=== PATIENT | male | born 1990 | race Caucasian/White ===

== ENCOUNTER → 2019-03-23 15:14 | Outpatient (CLI) | payer OTHER, SELFPAY | PROVIDERS: PCP Family Medicine; Visit Provider Nurse Practitioner Family | DX: Z02.4 Encounter for examination for driving license (principal) ==

== ENCOUNTER 2019-07-12 06:52 | Observation (INO) ==
[2019-07-12 07:12] LABS: Basophils % 0.6 % (0.1-2.0); Eosinophils # 0.1 K/mm3 (0.0-0.4); Eosinophils % 1.3 % (0.1-12.0); Hematocrit 46.4 % (42.0-52.0); Hemoglobin 16.3 g/dL (14.1-18.0); Lymphocytes # 1.9 K/mm3 (0.7-4.5); Lymphocytes % 39.1 % (10-50); Mean Corpuscular HGB Conc 35.1 g/dL (31.8-35.4); Mean Platelet Volume 7.1 fl (7.4-10.4); Monocytes # 0.2 K/mm3 (0.1-1.0); Monocytes % 3.8 % (1.7-9.3); Neutrophils # 2.7 K/mm3 (1.8-7.8); Neutrophils % 55.3 % (37.0-80.0); Platelet Count 250 K/mm3 (142-424); Red Blood Count 5.21 M/mm3 (4.60-6.20); Red Cell Distribution Width 12.4 % (11.5-17.5); White Blood Count 4.8 K/mm3 (4.8-10.8)
--- NOTE | 2019-07-12 07:35 | Emergency Department Note ---
ED Disposition Clinical Impression: Atrial fibrillation Qualifiers: Atrial fibrillation type: unspecified Qualified Code(s): I48.91 - Unspecified atrial fibrillation Disposition: Admitted as Observation Condition on Discharge: Good Referrals: Bal Cody MD [Primary Care Provider] - - Critical Care Critical Care Time: No Attestation: On 07/12/19, the high probability of a clinically significant, sudden or life threatening deterioration of the following system(s) required my full and direct attention, intervention and personal management. The time I documented below is in addition to time spent performing reported procedures but includes the following listed in this critical care notation. Medical Decision Making - Medical Records Medical records reviewed: Yes: I reviewed the patient's medical records. - Phil Inquiry Pt receiving controlled substance: No Vital Signs: 07/12/19 06:53 07/12/19 07:51 Temperature 98.2 F Temperature Source Oral Pulse Rate [Left Radial] 114 H Respiratory Rate 16 16 Blood Pressure [Right Arm] 161/92 H 100/58 L Blood Pressure Mean [Right Arm] 115 72 Blood Pressure Source [Right Arm] Automatic Cuff Automatic Cuff Blood Pressure Position [Right Arm] Sitting Sitting 02 Sat by Pulse Oximetry 97 95 Oxygen Delivery Method Room Air Room Air - Lab Data Lab results reviewed: Yes: I reviewed the patient's lab results. Lab Results 07/12/19 06:58: WBC 4.8, RBC 5.21, Hgb 16.3, Hct 46.4, MCV 89.0, MCH 31.3 H, MCHC 35.1, RDW 12.4, Plt Count 250, MPV 7.1 L, Neut % (Auto) 55.3, Lymph % (Auto) 39.1, [place] % (Auto) 3.8, Eos % (Auto) 1.3, Baso % (Auto) 0.6, Neut # (Auto) 2.7, Lymph # (Auto) 1.9, [place] # (Auto) 0.2, Eos # (Auto) 0.1, Baso # (Auto) 0.0, ESR 5 07/12/19 06:58: Sodium 139, Potassium 3.9, Chloride 101, Carbon Dioxide 28, Anion Gap 13.9, BUN 12, Creatinine 1.22, Estimated Creat Clear 115, Estimated GFR 70, Est GFR ( Amer) 85, Glucose 141 H, Calcium 9.1, Troponin I < 0.02, C-Reactive Protein < 0.2 07/12/19 06:58: TSH 1.51, Thyroxine (T4) 8.6 07/12/19 07:16: Urine Opiates Screen Negative, Urine Methadone Screen Negative, Ur Barbituates Screen Negative, Ur Phencyclidine Scrn Negative, Ur Amphetamines Screen Negative, U Benzodiazepines Scrn Negative, Urine Cocaine Screen Negative, U Marijuana (THC) Screen Negative 07/12/19 07:16: Urine Color Yellow, Urine Appearance Clear, Urine pH 6.0, Ur Specific [place] >= 1.030, Urine Protein Negative, Urine Glucose (UA) Negative, Urine Ketones Negative, Urine Blood Negative, Urine Nitrate Negative, Urine Bilirubin Negative, Urine Urobilinogen 0.2, Ur Leukocyte Esterase Negative Result diagrams: 07/12/19 06:58 07/12/19 06:58 Orders (Tests/Meds): ED MEDICATIONS Generic Name Dose Route Start Last Admin Trade Name Freq PRN Reason Stop Dose Admin Sodium Chloride 1,000 mls @ 999 mls/hr 07/12/19 07:15 07/12/19 07:24 Sod Chlor 0.9% 1000ml Bag IV 07/12/19 08:15 999 mls/hr .Q1H1M FELIPE Administration Diltiazem HCl 100 mg/ Sodium 100 mls @ 5 mls/hr 07/12/19 07:41 07/12/19 07:43 Chloride IV 08/11/19 07:40 5 mls/hr .Q20H FELIPE Administration Discontinued Medications Generic Name Dose Route Start Last Admin Trade Name Freq PRN Reason Stop Dose Admin Aspirin 324 mg 07/12/19 07:11 07/12/19 07:24 Aspirin 81mg Chewable Tablet PO 07/12/19 07:12 324 mg ONCE ONE Administration Diltiazem HCl 10 mg 07/12/19 07:25 07/12/19 07:43 Cardizem 25mg/5ml Vial IV 07/12/19 07:26 10 mg ONCE ONE Administration ORDERS Category Date Time Status D-Dimer Stat Lab 07/12/19 07:16 Received Troponin I Q3H Lab 07/12/19 10:15 Ordered Troponin I Q3H Lab 07/12/19 13:15 Ordered UA [Urinalysis and Microscopic] Stat Lab 07/12/19 07:16 Results - ECG Data Tracing #1 Arrhythmias present: afib Ischemic changes: non-specific ST-T wave changes - Physician Consults Physician Consulted: kathie Reason -: Admission Additional Consult: vidal Reason -: Pt condition Arrhythmia/Palpitations HPI - General Chief Complaint: Arrhythmia/Palpitations Stated Complaint: palpitation Time Seen by Provider: 07/12/19 07:34 Mode of Arrival: Ambulatory Source of Information: Patient, Medical Record Limitations: No Limitations - History of Present Illness HPI narrative: pt with acute onset of palpitaions complaint: palpitations Onset (ago): hour(s) Duration: constant Severity: moderate Context: occurred during rest Associated symptoms: chest pain - Related Data Home Medications Medication Instructions Recorded Confirmed atorvastatin 20 mg tablet 20 mg PO ONCE 90 Days #90 tab 01/27/18 06/01/19 pantoprazole 40 mg tablet,delayed 40 mg PO DAILY 90 Days #90 01/27/18 06/01/19 release Duloxetine HCl 60 mg PO DAILY 07/12/19 07/12/19 Allergies Allergy/AdvReac Type Severity Reaction Status Date / Time Penicillins [PENICILLINS] Allergy Unknown Verified 07/12/19 07:02 [facility] History - Hepatitis A Screen Drug use history?: No High risk sexual behaviors?: No History of sexually transmitted infection?: No Currently employed?: No Childcare worker?: No Do you have indoor plumbing?: Yes Do you have electricity?: Yes Attestation statement:: This patient has been screened for Hepatitis A risk factors. I have reviewed the patient's past medical history: Yes Medical History: Reports:: Gastroesophageal Reflux Disease(GERD), Hyperlipidemia Other Medical History: Reports: Other Other Surgeries: Yes: No Previous Surgery, Other (loop recorder) - Social History Smoking Status: Never smoker Tobacco Type: smokeless tobacco Alcohol Intake: never Alcohol Intake Frequency:: holidays/special occasions only Substance Use Type: denies use Occupational Status: employed Household Members: spouse Family Hx:: Coronary Artery Disease, Heart Attack, Stroke Comment: paternal grandfather at 51 from [place]. maternal grandfather at 59 from stroke. uncle at 37 from pulmonary fibrosis ROS Obtained: Yes All systems reviewed & no additional complaints - Constitutional Constitutional: Denies fever(s) - Eyes Eyes: Denies change in vision - ENT Ears, Nose, Mouth, and Throat: Denies sore throat - Cardiovascular Cardiovascular: Reports chest pain, Denies dyspnea, Reports irregular heart rhythm, Reports rapid heart rate - Respiratory Respiratory: No cough - Gastrointestinal Gastrointestingal: Denies: vomiting - Genitourinary Male Genitourinary: Denies hematuria - Musculoskeletal Musculoskeletal: Denies joint pain, Denies joint swelling - Integumentary/Breasts Skin/Breast: Denies rash - Neurologic Neurologic: Denies focal weakness, Denies seizure-like activity Physical Exam - General General appearance: alert - Head Head exam: normocephalic - Eye Eye exam: Present: PERRL, EOMI. Absent: scleral icterus - ENT ENT exam: Present: mucous membranes moist - Neck Neck exam: Present: trachea midline - Respiratory Respiratory exam: Present: normal lung sounds bilaterally. Absent: respiratory distress - Cardiovascular Cardiovascular exam: Present: irregular rhythm - Abdominal Exam Abdominal exam: Present: soft - Extremities Exam Extremities exam: Present: full ROM - Neurological Exam Neurological exam: Present: alert, oriented X3, CN II-XII intact - Psychiatric Psychiatric exam: Present: normal affect - Skin Skin exam: Absent: rash
[2019-07-12 07:39] LABS: Calcium 9.1 mg/dL (8.5-10.1)
[2019-07-12 07:44] LABS: Anion Gap 13.9 mEq/L (5-15); Blood Urea Nitrogen 12 mg/dL (7-18); Carbon Dioxide 28 mmol/L (21.0-32.0); Chloride 101 mmol/L (98-107); Sodium 139 mmol/L (136-145)
[2019-07-12 07:45] LABS: C-Reactive Protein < 0.2 mg/dL (0.0-0.9); Glucose 141 mg/dL (74-106)
[2019-07-12 07:45] LABS: Microscopic, Urine URINE MICROSCOPIC (MICROSCOPIC)
[2019-07-12 07:50] LABS: Appearance,Urine CLEAR (Clear); Bilirubin,Urine Negative (Negative); Blood, Urine Negative (Negative); Color,Urine YELLOW (Yellow); Glucose,Urine (UA) Negative (Negative); Ketones,Urine Negative (Negative); Leukocyte Esterase,Urine Negative (Negative); Protein,Urine Negative (Negative); Specific Gravity, Urine >= 1.030 (1.005-1.030); Urobilinogen,Urine 0.2 EU/dl (0.2)
[2019-07-12 07:54] LABS: Thyroid Stimulating Hormone 1.51 uIU/ml (0.358-3.740)
[2019-07-12 07:59] LABS: Amphetamine/Metha Screen,Urine Negative ng/mL (<1000); Barbiturates Screen,Urine Negative ng/mL (<200); Benzodiazepines Screen,Urine Negative ng/mL (<200); Cannabinoid Screen,Urine Negative ng/mL (<50); Cocaine Screen,Urine Negative ng/mL (<300); Methadone Screen,Urine Negative ng/mL (<300); Opiate Screen,Urine Negative ng/mL (<300); Phencyclidine Screen,Urine Negative ng/mL (<25)
[2019-07-12 08:05] LABS: Erythrocyte Sedimentation Rate 5 mm/hr (0-15)
[2019-07-12 08:14] LABS: WBC,Urine Occasional #/hpf (0-3)
--- NOTE | 2019-07-12 08:45 | Pharmacy Consult Notes ---
[facility] Pharmacy VTE Monitoring - Patient Demographics Admission date: 07/12/19 Report Date: 07/12/19 Time: 08:45 Allergies/Adverse Reactions: Patient Allergies Penicillins [PENICILLINS] Allergy (Unknown, Verified 07/12/19 07:02) Height: 1.73 m Weight: 90.718 kg Patient Problems: Current Active Problems Atrial fibrillation (Acute) - VTE Risk Labs: VTE Related Lab Results Hgb 16.3 g/dL (14.1-18.0) 07/12/19 06:58 Hct 46.4 % (42.0-52.0) 07/12/19 06:58 Plt Count 250 K/mm3 (142-424) 07/12/19 06:58 BUN 12 mg/dL (7-18) 07/12/19 06:58 Creatinine 1.22 mg/dL (0.70-1.30) 07/12/19 06:58 Estimated Creat Clear 115 mL/min (50-200) 07/12/19 06:58 Clinical Trial Participant: No - Prophylaxis VTE Prophylaxis Ordered?: Yes Types of VTE Prophylaxis: TEDS Knee High
--- NOTE | 2019-07-12 09:10 | History & Physical Report ---
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 A fellow veterinary medicine teacher measured his pulse rate around 200 beats per minute and measured his blood pressure at around 90 systolic. Patient was brought to the ER for further evaluation. Patient has had a bout a two year history of similar episodes. He describes times when his heart beats fast and he has fatigue and chest pain. He had a cardiac loop recorder implanted about 18 months ago for evaluation of this problem. [facility] History Medical History: Reports:: Gastroesophageal Reflux Disease(GERD), Hyperlipidemia *Have you ever received a pneumonia vaccine?: Yes *Have you received a flu vaccine this season?: Yes Other Medical History: Reports: Other Other Surgeries: Yes: No Previous Surgery, Other (loop recorder) - *Social History Smoking Status: Never smoker Tobacco Type: smokeless tobacco Alcohol Intake: never Alcohol Intake Frequency:: holidays/special occasions only Substance Use Type: denies use *Occupational Status:: employed Household Members: spouse *Travel in the last 8 weeks: None Family Hx:: Coronary Artery Disease, Heart Attack, Stroke Review of Systems - Constitutional Denies fever(s) - Eyes Denies change in vision - ENT Denies bleeding gums - *Cardiovascular Denies generalized swelling - *Respiratory Denies cough - *Gastrointestinal Denies abdominal pain - *Genitourinary Denies difficulty urinating - *Musculoskeletal Denies joint pain - Integumentary/Breasts Denies hair loss - *Neurologic Denies localized weakness, Denies seizure-like activity - Psychiatric Denies memory loss Meds Home Medications Medication Instructions Recorded Confirmed Type atorvastatin 20 mg tablet 20 mg PO HS 90 Days #90 tab 01/27/18 07/12/19 History pantoprazole 40 mg tablet,delayed 40 mg PO DAILY 90 Days #90 01/27/18 07/12/19 History release Duloxetine HCl 60 mg PO DAILY 07/12/19 07/12/19 History Allergies Allergy/AdvReac Type Severity Reaction Status Date / Time Penicillins [PENICILLINS] Allergy Unknown Verified 07/12/19 07:02 Exam Vital signs and Labs for Last 24 Hours: Temp Pulse Resp BP Pulse Ox 98.2 F 114 H 16 100/58 L 95 07/12/19 06:53 07/12/19 07:51 07/12/19 07:51 07/12/19 07:51 07/12/19 07:51 Laboratory Results - last 24 hr 07/12/19 06:58: WBC 4.8, RBC 5.21, Hgb 16.3, Hct 46.4, MCV 89.0, MCH 31.3 H, MCHC 35.1, RDW 12.4, Plt Count 250, MPV 7.1 L, Neut % (Auto) 55.3, Lymph % (Auto) 39.1, [place] % (Auto) 3.8, Eos % (Auto) 1.3, Baso % (Auto) 0.6, Neut # (Auto) 2.7, Lymph # (Auto) 1.9, [place] # (Auto) 0.2, Eos # (Auto) 0.1, Baso # (Auto) 0.0, ESR 5 07/12/19 06:58: Sodium 139, Potassium 3.9, Chloride 101, Carbon Dioxide 28, Anion Gap 13.9, BUN 12, Creatinine 1.22, Estimated Creat Clear 115, Estimated GFR 70, Est GFR ( Amer) 85, Glucose 141 H, Calcium 9.1, Troponin I < 0.02, C-Reactive Protein < 0.2 07/12/19 06:58: TSH 1.51, Thyroxine (T4) 8.6 07/12/19 07:16: D-Dimer < 100 07/12/19 07:16: Urine Opiates Screen Negative, Urine Methadone Screen Negative, Ur Barbituates Screen Negative, Ur Phencyclidine Scrn Negative, Ur Amphetamines Screen Negative, U Benzodiazepines Scrn Negative, Urine Cocaine Screen Negative, U Marijuana (THC) Screen Negative 07/12/19 07:16: Urine Color Yellow, Urine Appearance Clear, Urine pH 6.0, Ur Specific [place] >= 1.030, Urine Protein Negative, Urine Glucose (UA) Negative, Urine Ketones Negative, Urine Blood Negative, Urine Nitrate Negative, Urine Bilirubin Negative, Urine Urobilinogen 0.2, Ur Leukocyte Esterase Negative, Urine RBC None, Urine WBC Occasional, Ur Squamous Epith Cells None, Urine Bacteria None Vital Signs - 24 hr 07/12/19 06:53 07/12/19 07:51 Temperature 98.2 F Pulse Rate [Left Radial] 114 H Respiratory Rate 16 16 Blood Pressure [Right Arm] 161/92 H 100/58 L 02 Sat by Pulse Oximetry 97 95 I & O for Last 24 hours: Intake & Output 07/09/19 07/10/19 07/11/19 07/12/19 23:59 23:59 23:59 23:59 Weight 200 lb - Constitutional no acute distress - *Routine HEENT Exam Head: Present: normocephalic Eye: Present: EOMI, PERRL ENT: Present: mucous membranes moist - *Routine Neck Exam Present: supple. Absent: lymphadenopathy - *Routine Respiratory Exam Present: CTA bilaterally - *Routine Cardiovascular Exam Present: irregularly irregular - *Routine Abdominal Exam Present: soft, normoactive bowel sounds. Absent: tenderness - *Routine Extremities Exam Absent: cyanosis, clubbing, edema - *Routine Skin Exam Present: warm. Absent: rash - *Routine Neurological Exam Present: alert, oriented X3 H&P: Result - Imaging and Cardiology EKG Status: Preliminary report (A fib with RVR) Additional comments: Spoke to Dr. Ennis this morning. He states the loop recorder showed that patient initially went into SVT and then converted to A. fib. Assessment and Plan (1) Atrial fibrillation Current visit: Yes Status: Acute Qualifiers: Atrial fibrillation type: unspecified Qualified Code(s): I48.91 - Unspecified atrial fibrillation Category: Medical Code(s): I48.91 - Unspecified atrial fibrillation (2) SVT (supraventricular tachycardia) Current visit: Yes Status: Acute Category: Medical Code(s): I47.1 - Supraventricular tachycardia (3) GERD (gastroesophageal reflux disease) Current visit: Yes Status: Acute Category: Medical Code(s): K21.9 - Gastro-esophageal reflux disease without esophagitis - Assessment and plan all Dx Assessment and Plan for all problems:: Patient started on a cardizem drip in the ER, plan admission for further evaluation and treatment. At some point patient will likely need an EP study and may need anticoagulation depending on the length of time he is in A. fib.
[2019-07-13 05:28] LABS: Basophils # 0.1 K/mm3 (0-0.2); Basophils % 0.8 % (0.1-2.0); Eosinophils # 0.1 K/mm3 (0.0-0.4); Eosinophils % 1.8 % (0.1-12.0); Hematocrit 42.6 % (42.0-52.0); Hemoglobin 14.7 g/dL (14.1-18.0); Lymphocytes % 34.8 % (10-50); Mean Corpuscular HGB Conc 34.5 g/dL (31.8-35.4); Mean Corpuscular Volume 90.9 fl (80-94); Mean Platelet Volume 7.4 fl (7.4-10.4); Monocytes # 0.3 K/mm3 (0.1-1.0); Monocytes % 5.1 % (1.7-9.3); Neutrophils # 3.3 K/mm3 (1.8-7.8); Neutrophils % 57.5 % (37.0-80.0); Platelet Count 264 K/mm3 (142-424); Red Blood Count 4.68 M/mm3 (4.60-6.20); Red Cell Distribution Width 12.6 % (11.5-17.5); White Blood Count 5.8 K/mm3 (4.8-10.8)
[2019-07-13 05:35] LABS: Anion Gap 15.1 mEq/L (5-15)
[2019-07-13 05:36] LABS: Calcium 8.5 mg/dL (8.5-10.1)
--- NOTE | 2019-07-13 09:05 | Progress Note ---
Internal Medicine - PN: Subj *Date: 07/13/19 *Time: 09:03 Interval history: Patient did well overnight. He converted to NSR around 3 pm yesterday and was changed over to oral Cardizem. He is anxious to go home today. Exam Vital signs and Labs for Last 24 Hours: Temp Pulse Resp BP Pulse Ox 98.2 F 74 19 121/73 97 07/13/19 08:41 07/13/19 08:00 07/13/19 08:00 07/13/19 08:00 07/13/19 08:00 Laboratory Results - last 24 hr 07/12/19 10:45: Troponin I 0.02 07/12/19 13:25: Troponin I 0.04 07/13/19 05:18: WBC 5.8, RBC 4.68, Hgb 14.7, Hct 42.6, MCV 90.9, MCH 31.4 H, MCHC 34.5, RDW 12.6, Plt Count 264, MPV 7.4, Neut % (Auto) 57.5, Lymph % (Auto) 34.8, [place] % (Auto) 5.1, Eos % (Auto) 1.8, Baso % (Auto) 0.8, Neut # (Auto) 3.3, Lymph # (Auto) 2.0, [place] # (Auto) 0.3, Eos # (Auto) 0.1, Baso # (Auto) 0.1 07/13/19 05:18: Sodium 141, Potassium 4.1, Chloride 105, Carbon Dioxide 25, Anion Gap 15.1 H, BUN 12, Creatinine 1.00, Estimated Creat Clear 149, Estimated GFR 88, Est GFR ( Amer) 107 D, Glucose 103 D, Calcium 8.5, Magnesium 1.8 Vital Signs - 24 hr 07/12/19 09:14 07/12/19 09:30 07/12/19 10:00 Temperature 98.1 F Pulse Rate 78 Pulse Rate [Apical] Pulse Rate [Left Radial] 105 H 120 H 103 H Respiratory Rate 18 16 16 Blood Pressure 121/78 Blood Pressure [Left Arm] Blood Pressure [Right Arm] 136/92 H 129/77 125/70 02 Sat by Pulse Oximetry 97 97 97 07/12/19 10:30 07/12/19 12:00 07/12/19 14:00 Temperature Pulse Rate 93 H Pulse Rate [Apical] Pulse Rate [Left Radial] 127 H 89 99 H Respiratory Rate 16 16 20 Blood Pressure Blood Pressure [Left Arm] 132/69 Blood Pressure [Right Arm] 130/98 H 126/68 02 Sat by Pulse Oximetry 96 95 94 L 07/12/19 16:00 07/12/19 17:00 07/12/19 18:00 Temperature 98.2 F Pulse Rate 80 Pulse Rate [Apical] Pulse Rate [Left Radial] 85 86 Respiratory Rate 20 20 Blood Pressure Blood Pressure [Left Arm] 117/70 131/77 Blood Pressure [Right Arm] 02 Sat by Pulse Oximetry 95 97 97 07/12/19 20:00 07/12/19 21:46 07/12/19 22:00 Temperature 98.2 F Pulse Rate 80 103 H Pulse Rate [Apical] Pulse Rate [Left Radial] 86 98 H Respiratory Rate 20 16 Blood Pressure Blood Pressure [Left Arm] 139/75 131/80 Blood Pressure [Right Arm] 02 Sat by Pulse Oximetry 95 92 L 07/13/19 00:00 07/13/19 02:00 07/13/19 04:00 Temperature 98.2 F 98.0 F Pulse Rate 70 70 Pulse Rate [Apical] Pulse Rate [Left Radial] 76 85 82 Respiratory Rate 16 14 15 Blood Pressure Blood Pressure [Left Arm] 104/56 L 104/60 L 105/72 L Blood Pressure [Right Arm] 02 Sat by Pulse Oximetry 94 L 95 94 L 07/13/19 06:00 07/13/19 08:00 07/13/19 08:41 Temperature 98.2 F 98.2 F Pulse Rate 80 Pulse Rate [Apical] 74 Pulse Rate [Left Radial] 75 Respiratory Rate 15 19 Blood Pressure Blood Pressure [Left Arm] 118/77 121/73 Blood Pressure [Right Arm] 02 Sat by Pulse Oximetry 96 97 I & O for Last 24 hours: Intake & Output 07/10/19 07/11/19 07/12/19 07/13/19 23:59 23:59 23:59 23:59 Intake Total 1499 / 1499 4401 / 4401 Balance 1499 / 1499 4401 / 4401 Weight 211 lb 1 oz 213 lb 6 oz - Constitutional no acute distress - *Routine HEENT Exam Head: Present: normocephalic Eye: Present: EOMI ENT: Present: mucous membranes moist - *Routine Neck Exam Present: supple. Absent: lymphadenopathy - *Routine Respiratory Exam Present: CTA bilaterally - *Routine Cardiovascular Exam Present: RRR - *Routine Abdominal Exam Present: soft, normoactive bowel sounds. Absent: tenderness - *Routine Extremities Exam Absent: cyanosis, clubbing, edema - *Routine Skin Exam Present: warm. Absent: rash - *Routine Neurological Exam Present: alert, oriented X3 Assessment and Plan (1) Atrial fibrillation Current visit: Yes Status: Acute Qualifiers: Atrial fibrillation type: unspecified Qualified Code(s): I48.91 - Unspecified atrial fibrillation Category: Medical Code(s): I48.91 - Unspecified atrial fibrillation (2) SVT (supraventricular tachycardia) Current visit: Yes Status: Acute Category: Medical Code(s): I47.1 - Supraventricular tachycardia (3) GERD (gastroesophageal reflux disease) Current visit: Yes Status: Acute Category: Medical Code(s): K21.9 - Gastro-esophageal reflux disease without esophagitis - Assessment and plan all Dx Assessment and Plan for all problems:: Plan discharge home today on Cardizem 240 mg daily. Will make arrangements for cardiology EP evaluation as an outpatient.
--- NOTE | 2019-07-14 09:00 | Discharge Summary ---
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 A fellow zoo keeper measured his pulse rate around 200 beats per minute and measured his blood pressure at around 90 systolic. Patient was brought to the ER for further evaluation. Patient has had a bout a two year history of similar episodes. He describes t imes when his heart beats fast and he has fatigue and chest pain. He had a cardiac loop recorder implanted about 18 months ago for evaluation of this problem. Hospital Course Hospital Course: The patient's chest x-ray showed nothing acute. His EKG showed atrial fibrillation with a rapid ventricular response. Dr. Cody did speak with Dr. Ennis who stated the loop recorder showed that the patient initially went into SVT and then converted to A. fib. He was started on a Cardizem drip in the ER and was admitted for further evaluation and treatment. The patient did convert to normal sinus rhythm on the Cardizem drip and was changed over to oral Cardizem. His troponins were negative. He was anxious to be discharged home. He was stable to be discharged on Cardizem 240 mg daily and arrangements will be made for cardiology EP evaluation as an outpatient. Objective Vital signs: Temp Pulse Resp BP Pulse Ox 98.2 F 74 19 121/73 97 07/13/19 08:41 07/13/19 08:00 07/13/19 08:00 07/13/19 08:00 07/13/19 08:00 Narrative: - Constitutional no acute distress - *Routine HEENT Exam Head: Present: normocephalic Eye: Present: EOMI, PERRL ENT: Present: mucous membranes moist - *Routine Neck Exam Present: supple. Absent: lymphadenopathy - *Routine Respiratory Exam Present: CTA bilaterally - *Routine Cardiovascular Exam Present: irregularly irregular - *Routine Abdominal Exam Present: soft, normoactive bowel sounds. Absent: tenderness - *Routine Extremities Exam Absent: cyanosis, clubbing, edema - *Routine Skin Exam Present: warm. Absent: rash - *Routine Neurological Exam Present: alert, oriented X3 DS: Diagnosis - Discharge Diagnosis (1) Atrial fibrillation Status: Acute (2) SVT (supraventricular tachycardia) Status: Acute (3) GERD (gastroesophageal reflux disease) Status: Acute Discharge Plan - Patient Discharge Instructions ACTIVITY: Continue current activity DIET: continue same diet Patient Instructions: DI for Atrial Fibrillation, DI for Paroxysmal Supraventricular Tachycardia - Follow up Plan Follow up with: Bal Cody MD [Primary Care Provider] - 08/02/19 Disposition: Home, Self-[facility] Medications: Home Medications Medication Instructions Recorded Confirmed Type atorvastatin 20 mg tablet 20 mg PO HS 90 Days #90 tab 01/27/18 07/12/19 History pantoprazole 40 mg tablet,delayed 40 mg PO DAILY 90 Days #90 01/27/18 07/12/19 History release Duloxetine HCl 60 mg PO DAILY 07/12/19 07/12/19 History dilTIAZem HCL [Cardizem ER 240mg 240 mg PO DAILY #30 cap.er.24h 07/13/19 Rx Capsule] Prescriptions/Medication Reconciliation: New dilTIAZem HCL [Cardizem ER 240mg Capsule] 240 mg PO DAILY #30 cap.er.24h Continued atorvastatin 20 mg tablet 20 mg PO HS 90 Days #90 tab pantoprazole 40 mg tablet,delayed release 40 mg PO DAILY 90 Days #90 Duloxetine HCl 60 mg PO DAILY - Problem Reconciliation Problems Reviewed?: Yes
--- NOTE | 2019-07-17 14:36 | Electrocardiograph Report ---
APPROVED REPORT Exam: Resting ECG HR:90 bpm ECG Measurements Heart Rate 90 AXES UT 140 P 25 QRSd 72 QRS 46 QT 324 T36 QTc 396 <Conclusion> Normal sinus rhythm Normal ECG Electronically signed by : Christian Mcgee, 07/17/2019 14:36:01
--- NOTE | 2019-07-17 14:37 | Electrocardiograph Report ---
APPROVED REPORT Exam: Resting ECG HR:137 bpm ECG Measurements Heart Rate 137 AXES QRSd 62 QRS 44 QT 276 T19 QTc 416 <Conclusion> Atrial fibrillation with rapid ventricular response Abnormal ECG Electronically signed by : Christian Mcgee, 07/17/2019 14:37:09
== END 2019-07-13 09:40 | disposition home or self-care (01) ==
LOC: ER 06:52 → 2ND 08:11 → INTOOBSV 09:16
PROVIDERS: ADMIT Family Medicine; ATTEND Family Medicine
CPT/HCPCS: 36415; 71020; 71046; 80048; 80305; 81001; 83735; 84436; 84443; 84484; 85025; 85378; 85651; 86140; 93005; 96365; 96367; 96375; 99284; G0378